=== PATIENT | male | born 1970 | race Caucasian/White ===

== ENCOUNTER 2016-08-01 21:20 | Emergency (ER) | payer MEDICAID, OTHER ==
[2016-08-01] MEDS ORDERED: Sodium Chloride 0.9% 1,000 ML IV ONE (21:27)
[2016-08-01] MEDS ORDERED: Sodium Chloride 0.9% 2.5 ML Syringe FLUSH PRN (21:27)
[2016-08-01] MEDS ORDERED: Sodium Chloride 0.9% 10 ML Syringe FLUSH PRN (21:27)
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
[2016-08-01 21:59] LABS: CHLORIDE,CL 102 mmol/L (98-110); SODIUM,NA 139 mmol/L (136-146)
[2016-08-01] MEDS ORDERED: Iopamidol 755 Mg/ML 100 ML Bottle IVPUSH STA (22:32)
[2016-08-01 22:35] VITALS: BP 166/133
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
== END 2016-08-01 23:25 ==
LOC: MW.ED 21:20
DX: S25.09XA Other specified injury of thoracic aorta, initial encounter (principal); S12.200A Unspecified displaced fracture of third cervical vertebra, initial encounter for closed fracture; S12.300A Unspecified displaced fracture of fourth cervical vertebra, initial encounter for closed fracture; S12.500A Unspecified displaced fracture of sixth cervical vertebra, initial encounter for closed fracture; S22.32XA Fracture of one rib, left side, initial encounter for closed fracture; S22.31XA Fracture of one rib, right side, initial encounter for closed fracture; V86.59XA Driver of other special all-terrain or other off-road motor vehicle injured in nontraffic accident, initial encounter; S22.039A Unspecified fracture of third thoracic vertebra, initial encounter for closed fracture; S22.049A Unspecified fracture of fourth thoracic vertebra, initial encounter for closed fracture; S22.059A Unspecified fracture of T5-T6 vertebra, initial encounter for closed fracture; S22.20XA Unspecified fracture of sternum, initial encounter for closed fracture
CPT/HCPCS: 36415; 70450; 71260; 72125; 74177; 80053; 81001; 85025; 85610; 93005; 96360; 96361; 99285; G0390; J7040; Q9967; 72128-26; 72131-26

== ENCOUNTER 2022-05-25 14:38 | Emergency (ER) | payer SELFPAY ==
[2022-05-25] MEDS ORDERED: Sodium Chloride 0.9% 2.5 ML Syringe FLUSH PRN (15:10)
[2022-05-25] MEDS ORDERED: Labetalol 100 MG/20 ML MDV IVPUSH STA ×2 (15:10→16:03)
[2022-05-25] MEDS ORDERED: Sodium Chloride 0.9% 10 ML Syringe FLUSH PRN (15:10)
[2022-05-25 16:02] LABS: CARBON DIOXIDE,CO2 26.3 mmol/L (21.0-32.0)
[2022-05-25] MEDS ORDERED: Iopamidol 755 MG/ML 500 ML Multipack Bottle IVPUSH ONE (16:28)
[2022-05-25] MEDS ORDERED: hydrALAZINE 20 MG/ML SDV IVPUSH STA (16:57)
[2022-05-25] MEDS ORDERED: Potassium Chloride 20 MEQ Tab.ER PO STA (17:32)
[2022-05-25 18:25] VITALS: BP 211/145; PULSE 92
== END 2022-05-25 18:31 | disposition home or self-care (01) ==
LOC: MW.ED 14:38
DX: I16.0 Hypertensive urgency (principal); E87.6 Hypokalemia; R79.1 Abnormal coagulation profile; Z72.0 Tobacco use; Z91.048 Other nonmedicinal substance allergy status; Z79.899 Other long term (current) drug therapy; Z98.890 Other specified postprocedural states
CPT/HCPCS: 36415; 71045; 71275; 80053; 80305; 81001; 83735; 83880; 85025; 93005; 96374; 96375; 96376; 99284; A9270; J0360; J3490; Q9967; 93010

== ENCOUNTER 2024-03-17 08:53 | Day surgery (SDC) | payer MEDICAID ==
[~2024-03-17 08:53] MED LIST: Lactated Ringers 1,000 ML IV SCH
[2024-03-17] MEDS: Lactated Ringers 1,000 ML IV SCH (09:27)
[2024-03-17] MEDS ORDERED: propofoL 500 MG/50 ML 50 ML ONE (10:00)
[2024-03-17] MEDS ORDERED: Propofol 200 MG/20 ML SDV ONE (10:52)
[2024-03-17] MEDS ORDERED: ePHEDrine 50 MG/ML SDV ONE (11:10)
[2024-03-17] MEDS ORDERED: Lactated Ringers 1,000 ML IV SCH (11:30)
[2024-03-17 12:01] VITALS: BP 116/88; PULSE 68
== END 2024-03-17 12:10 | disposition home or self-care (01) ==
LOC: MW.SDS 08:53
PROVIDERS: ATTEND Surgery
DX: Z12.11 Encounter for screening for malignant neoplasm of colon (principal); R19.5 Other fecal abnormalities; D12.5 Benign neoplasm of sigmoid colon; D12.8 Benign neoplasm of rectum; E78.5 Hyperlipidemia, unspecified; I10 Essential (primary) hypertension; F17.210 Nicotine dependence, cigarettes, uncomplicated; E78.00 Pure hypercholesterolemia, unspecified; Z79.899 Other long term (current) drug therapy
CPT/HCPCS: 45380; J2704; J7120; 00811; J3490